=== PATIENT | male | born 1980 | race Caucasian/White ===

== ENCOUNTER 2016-12-26 08:55 | Day surgery (SDC) | payer BC, OTHER ==
[~2016-12-26 08:55] MED LIST: Lactated Ringers 1,000 ML IV SCH
--- NOTE | 2016-12-26 09:19 | PCM.PREANE ---
Preanesthetic Assessment - Anesthesia/Transfusion/Family Hx Anesthesia History: Prior Anesthesia Without Reaction Other Type of Anesthesia Reaction Comment: Denies any known problem in past, no known family hx: problems Family History of Anesthesia Reaction: No Transfusion History: No Prior Transfusion(s) Intubation History: Unknown - Review of Systems General: No Symptoms Pulmonary: No Symptoms Cardiovascular: No Symptoms Gastrointestinal: No symptoms Neurological: No Symptoms Other: Reports: None - Physical Assessment O2 Sat by Pulse Oximetry: 97 Respiratory Rate: 16 Vital Signs: Last Vital Signs Temp 36.4 C 12/26/16 09:02 Pulse 68 12/26/16 09:02 Resp 16 12/26/16 09:02 BP 134/66 12/26/16 09:02 Pulse Ox 97 12/26/16 09:02 Height: 1.75 m Weight: 102.512 kg ASA Class: 2 Mental Status: Alert & Oriented x3 Airway Class: Mallampati = 2 Dentition: Reports: Normal Dentition Thyro-Mental Finger Breadths: 3 Mouth Opening Finger Breadths: 2 ROM/Head Extension: Full Lungs: Clear to auscultation, Normal respiratory effort Cardiovascular: Regular Rate, Regular Rhythm - Allergies Allergies/Adverse Reactions: Allergies Allergy/AdvReac Type Severity Reaction Status Date / Time No Known Allergies Allergy Verified 11/14/14 10:22 - Blood Blood Available: No - Anesthesia Plan Pre-Op Medication Ordered: None - Acknowledgements Anesthesia Type Planned: MAC Pt an Appropriate Candidate for the Planned Anesthesia: Yes Alternatives and Risks of Anesthesia Discussed w Pt/Guardian: Yes Pt/Guardian Understands and Agrees with Anesthesia Plan: Yes PreAnesthesia Questionnaire Musculoskeletal History: Reports: Fracture Other Musculoskeletal History: hx fx clavicle, left leg and hand Endocrine/Metabolic History: Reports: Obesity/BMI 30+ Oncologic (Cancer) History: Reports: Colon (h/o sigmoid colon cancer with resection and end-to-end anastomosis ) - Past Surgical History Head Surgeries/Procedures: Reports: None GI Surgical History: Reports: Colonoscopy (multiple, last one in ) Other GI Surgeries/Procedures: hemicolectomy for colon cancer - SUBSTANCE USE Smoking Status *Q: Former Smoker (quit 8 years ago) Days Per Week of Alcohol Use: 1 Number of Drinks Per Day: 1 Total Drinks Per Week: 1 Recreational Drug Use History: No - HOME MEDS Home Medications: Home Meds . [No Known Home Meds] 11/14/14 [History] - CURRENT (IN HOUSE) MEDS Current Meds: Current Medications Lactated Ringer's (Ringers, Lactated) 1,000 mls @ 125 mls/hr IV ASDIRECTED [facility] Last Admin: 12/26/16 09:06 Dose: 125 mls/hr
[2016-12-26] MEDS ORDERED: fentaNYL 100 MCG/2 ML SDV ONE (09:52)
[2016-12-26] MEDS ORDERED: Lidocaine 2% 5 ML SDV ONE (09:52)
[2016-12-26] MEDS ORDERED: Midazolam 1 MG/ML 2 ML SDV ONE (09:52)
[2016-12-26] MEDS ORDERED: Propofol 200 MG/20 ML SDV ONE (09:52)
--- NOTE | 2016-12-26 10:22 | PCM.OPNOTE ---
- General Post-Op/Procedure Note Date of Surgery/Procedure: 12/26/16 Operative Procedure(s): Colonoscopy Pre Op Diagnosis: Personal history of colon cancer. Family history of colon cancer. Post-Op Diagnosis: No evidence of neoplasia. Anesthesia Technique: MAC (ASA II) Primary Surgeon: Den Farris Condition: Good Free Text/Narrative:: Dictation [id number] CPT CODE [id number]
[2016-12-26] MEDS ORDERED: Lactated Ringers 1,000 ML IV SCH (10:30)
[2016-12-26 11:05] VITALS: BP 124/76
--- NOTE | 2016-12-26 14:36 | OR ---
SURGEON: Den Farris M.D. DATE OF PROCEDURE: 12/26/2016 OPERATION PERFORMED: Colonoscopy. ANESTHESIA: MAC. ASA CLASSIFICATION: II. PREOPERATIVE DIAGNOSES: 1. Personal history of colon cancer. 2. Family history of colon cancer. POSTOPERATIVE DIAGNOSIS: No evidence of neoplasia. DESCRIPTION OF PROCEDURE: The patient was taken to the endoscopy room and positioned on the endoscopy table in the left lateral decubitus position. Time-out was called for appropriate identification of the patient and procedure. Monitored anesthesia care was provided. The colonoscope was inserted into the rectum and advanced with minimal difficulty to the cecum. The cecum was identified by internal landmarks and external pressure. The colonoscope was retroflexed in the cecum to visualize the ascending colon from below. The colonoscope was then straightened and slowly withdrawn. The cecum, ascending colon, hepatic flexure, transverse colon, splenic flexure, and descending colon showed no tumors, polyps, diverticula, or angiodysplastic changes. The anastomosis was widely patent at approximately 19 cm from the anus. There was no evidence of recurrence. Once the colonoscope was withdrawn to the distal rectum, it was retroflexed to visualize the anal orifice from above. No tumors, polyps, or acute hemorrhoidal changes were noted. The colonoscope was then straightened, the rectum aspirated, and the colonoscope removed. The patient tolerated the procedure well and was taken to recovery room in stable condition. CECY RAY /[id number]
== END 2016-12-26 11:03 | disposition home or self-care (01) ==
LOC: MW.SDS 08:55
PROVIDERS: ATTEND Surgery
PROC: 0DJD8ZZ Inspection of Lower Intestinal Tract, Via Natural or Artificial Opening Endoscopic (ICD-10-PCS; principal; 2016-12-26)
DX: Z12.11 Encounter for screening for malignant neoplasm of colon (principal); E66.9 Obesity, unspecified; Z85.038 Personal history of other malignant neoplasm of large intestine; Z80.0 Family history of malignant neoplasm of digestive organs; Z98.0 Intestinal bypass and anastomosis status; Z90.49 Acquired absence of other specified parts of digestive tract; Z98.890 Other specified postprocedural states; Z87.891 Personal history of nicotine dependence; Z68.33 Body mass index [BMI] 33.0-33.9, adult
CPT/HCPCS: 45378; J2250; J3010; J7120; J2704

== ENCOUNTER 2019-07-16 02:20 | Emergency (ER) | payer OTHER ==
[2019-07-16 02:40] VITALS: BP 153/89; PULSE 96
--- NOTE | 2019-07-16 02:49 | EDM.PDOC ---
ED HPI GENERAL MEDICAL PROBLEM - General Chief Complaint: ENT Problem Stated Complaint: THROAT AND SINUS PAIN Time Seen by Provider: 07/16/19 02:31 - History of Present Illness INITIAL COMMENTS - FREE TEXT/NARRATIVE: HISTORY AND PHYSICAL: History of present illness: The patient is a 38-year-old male who presents with approximately a little less none 24 hours of symptoms of runny nose sinus congestion and drainage sore throat and an occasional dry cough. He has not had a fever nausea vomiting or diarrhea. He did not get his flu shot this year. He is able to eat and drink despite the sore throat. He is not having headache or facial pain or sinus pain. The patient flew in from [facility] through [place] here to [place] on Monday and said that he had a normal day Monday and Monday. Monday, about 11 AM, yesterday, he started feeling the symptoms and took 1 dose of an [id number] medication he thinks is Sudafed. He says that this morning he came in because as he was sleeping he felt like there was fluid in the back of his throat and it would trigger a cough and he could not get any rest. He did not take any further idvf-wag-xyibgod meds. Review of systems: As per history of present illness and below otherwise all systems reviewed and negative. Past medical history: As per history of present illness and as reviewed below otherwise noncontributory. Surgical history: As per history of present illness and as reviewed below otherwise noncontributory. Social history: No reported history of drug or alcohol abuse. Family history: As per history of present illness and as reviewed below otherwise noncontributory. Physical exam: General: Well-developed well-nourished man who is nontoxic and vital signs are noted by me. He speaking clearly without breathlessness hoarse or muffled voice HEENT: Atraumatic, normocephalic, pupils reactive, negative for conjunctival pallor or scleral icterus, mucous membranes moist, throat clear of exudates but there is posterior oropharyngeal erythema without uvular deviation or swelling, there is no cervical adenopathy or nuchal rigidity, there is no sinus tenderness on palpation but the turbinates are boggy bilaterally with clear nasal drainage seen,, neck supple, nontender, trachea midline. Lungs: Clear to auscultation, breath sounds equal bilaterally, chest nontender. No wheezing stridor or work of breathing Heart: S1S2, regular, and rhythm no overt murmurs Abdomen: Soft, nondistended, nontender. Normal active bowel sounds Pelvis: Deferred Genitourinary: Deferred. Rectal: Deferred. Extremities: Atraumatic, negative for cords or calf pain. Neurovascular unremarkable. Neuro: Awake, alert, oriented. Cranial nerves II through XII unremarkable. Cerebellum unremarkable. Motor and sensory unremarkable throughout. Exam nonfocal. Diagnostics: Influenza rapid strep Therapeutics: [] I discussed with the patient that he could try iepr-fxu-tupykbg Flonase as well as Zyrtec Claritin or Muriel to help with his sinus fluid and drainage. We also talked about other symptomatic care and need for follow-up and he states that he does have a local provider. Impression: nasal/sinus congestion and pharyngitis Definitive disposition and diagnosis as appropriate pending reevaluation and review of above. - Related Data Allergies Allergy/AdvReac Type Severity Reaction Status Date / Time No Known Allergies Allergy Verified 07/16/19 02:39 Home Meds: Home Meds . [No Known Home Meds] 11/14/14 [History] Past Medical History Gastrointestinal History: Reports: None Musculoskeletal History: Reports: Fracture Other Musculoskeletal History: hx fx clavicle, left leg and hand Endocrine/Metabolic History: Reports: Obesity/BMI 30+ Oncologic (Cancer) History: Reports: Colon - Past Surgical History Head Surgeries/Procedures: Reports: None GI Surgical History: Reports: Colonoscopy Other GI Surgeries/Procedures: hemicolectomy for colon cancer Oncologic Surgical History: Reports: Other (See Below) Other Oncologic Surgeries/Procedures: hemicolectomy Social & Family History - Family History Family Medical History: Noncontributory - Tobacco Use Smoking Status *Q: Never Smoker Second Hand Smoke Exposure: No - Caffeine Use Caffeine Use: Reports: Energy Drinks - Recreational Drug Use Recreational Drug Use: No ED ROS GENERAL - Review of Systems Review Of Systems: Comprehensive ROS is negative, except as noted in HPI. ED EXAM, GENERAL - Physical Exam Exam: See Below (See dictation) Course - Vital Signs Last Recorded V/S: Last Vital Signs Temp 36.4 C 07/16/19 02:27 Pulse 96 07/16/19 02:27 Resp 18 07/16/19 02:27 BP 153/89 H 07/16/19 02:27 Pulse Ox 99 07/16/19 02:27 - Orders/Labs/Meds Orders: Active Orders 24 hr Category Date Time Status CULTURE STREP A CONFIRMATION [] Stat Lab 07/16/19 02:33 Results STREP SCRN A RAPID W CULT CONF [] Stat Lab 07/16/19 02:33 Results Departure - Departure Time of Disposition: 03:02 Disposition: Home, Self-Care 01 Condition: Good Clinical Impression: Nasal congestion Pharyngitis Qualifiers: Pharyngitis/tonsillitis etiology: unspecified etiology Qualified Code(s): J02.9 - Acute pharyngitis, unspecified - Discharge Information Referrals: Emma Parrish NP [Primary Care Provider] - Forms: ED Department Discharge Additional Instructions: The following information is given to patients seen in the emergency department who are being discharged to home. This information is to outline your options for follow-up care. We provide all patients seen in our emergency department with a follow-up referral. The need for follow-up, as well as the timing and circumstances, are variable depending upon the specifics of your emergency department visit. If you don't have a primary care physician on staff, we will provide you with a referral. We always advise you to contact your personal physician following an emergency department visit to inform them of the circumstance of the visit and for follow-up with them and/or the need for any referrals to a consulting specialist. The emergency department will also refer you to a specialist when appropriate. This referral assures that you have the opportunity for followup care with a specialist. All of these measure are taken in an effort to provide you with optimal care, which includes your followup. Under all circumstances we always encourage you to contact your private physician who remains a resource for coordinating your care. When calling for followup care, please make the office aware that this follow-up is from your recent emergency room visit. If for any reason you are refused follow-up, please contact the [facility] emergency department at and ask to speak to the emergency department charge nurse. [facility] Primary care- Internal Medicine and Family [address] [address] Push hydration and rest when you can. Use oivp-ouw-gvhcbwm medication such as Claritin Muriel or Zyrtec to help with sinus fluid and congestion and use over- the-counter Tylenol or ibuprofen for pain and fevers. Call and connect with your provider or 1 of ours for follow-up and reevaluation and return to ER as needed and as discussed. You may also use hanz-rcj-pgkdodh Flonase that may help with any nasal congestion. Sepsis Event Note - Evaluation Sepsis Screening Result: No Definite Risk - Focused Exam Vital Signs: Vital Signs Temp Pulse Resp BP Pulse Ox 07/16/19 02:27 36.4 C 96 18 153/89 H 99 Date Exam was Performed: 07/16/19 Time Exam was Performed: 03:02 - My Orders Last 24 Hours: My Active Orders 07/16/19 02:33 CULTURE STREP A CONFIRMATION [RM] Stat STREP SCRN A RAPID W CULT CONF [RM] Stat - Assessment/Plan Last 24 Hours: My Active Orders 07/16/19 02:33 CULTURE STREP A CONFIRMATION [RM] Stat STREP SCRN A RAPID W CULT CONF [RM] Stat
== END 2019-07-16 03:12 | disposition home or self-care (01) ==
LOC: MW.ED 02:20
DX: J02.9 Acute pharyngitis, unspecified (principal); E66.9 Obesity, unspecified
CPT/HCPCS: 87081; 87804; 87880-QW; 99282; 99283

== ENCOUNTER 2020-03-09 09:32 | Day surgery (SDC) | payer OTHER ==
[~2020-03-09 09:32] MED LIST changes: +Lidocaine 2% 5 ML SDV ONE; +Midazolam 1 MG/ML 2 ML SDV ONE; +Propofol 200 MG/20 ML SDV ONE; +fentaNYL 100 MCG/2 ML SDV ONE
--- NOTE | 2020-03-09 10:10 | PCM.PREANE ---
Preanesthetic Assessment - Anesthesia/Transfusion/Family Hx Anesthesia History: Prior Anesthesia Without Reaction Other Type of Anesthesia Reaction Comment: Denies any known problem in past, no known family hx: problems Family History of Anesthesia Reaction: No Transfusion History: No Prior Transfusion(s) Intubation History: Unknown - Review of Systems General: No Symptoms Pulmonary: No Symptoms Cardiovascular: No Symptoms Gastrointestinal: No Symptoms Neurological: No Symptoms Other: Reports: None - Physical Assessment NPO Status Date: 03/08/20 Vital Signs: Last Vital Signs Temp 97.7 F 03/09/20 09:50 Pulse 62 03/09/20 09:50 Resp 16 03/09/20 09:50 BP 148/87 H 03/09/20 09:50 Pulse Ox 97 03/09/20 09:50 Height: 5 ft 9 in Weight: 112.945 kg ASA Class: 2 Mental Status: Alert & Oriented x3 Airway Class: Mallampati = 2 Dentition: Reports: Normal Dentition ROM/Head Extension: Full Lungs: Clear to Auscultation, Normal Respiratory Effort Cardiovascular: Regular Rate, Regular Rhythm - Allergies Allergies/Adverse Reactions: Allergies Allergy/AdvReac Type Severity Reaction Status Date / Time No Known Allergies Allergy Verified 03/03/20 11:29 - Blood Blood Available: No - Anesthesia Plan Pre-Op Medication Ordered: None - Acknowledgements Anesthesia Type Planned: General Anesthesia Pt an Appropriate Candidate for the Planned Anesthesia: Yes Alternatives and Risks of Anesthesia Discussed w Pt/Guardian: Yes Pt/Guardian Understands and Agrees with Anesthesia Plan: Yes PreAnesthesia Questionnaire Gastrointestinal History: Reports: Colon Polyp, GERD, Hemorrhoids Musculoskeletal History: Reports: Fracture Other Musculoskeletal History: hx of fx ankle, leg, clavicle, toe- no hardware Neurological History: Reports: Concussion Endocrine/Metabolic History: Reports: Obesity/BMI 30+ Oncologic (Cancer) History: Reports: Colon - Past Surgical History Head Surgeries/Procedures: Reports: None GI Surgical History: Reports: Colon, Colonoscopy Other GI Surgeries/Procedures: hx of Hemicolectomy Oncologic Surgical History: Reports: Other (See Below) Other Oncologic Surgeries/Procedures: Hemicolectomy - SUBSTANCE USE Smoking Status *Q: Former Smoker Tobacco Use Within Last Twelve Months: No Recreational Drug Use History: Yes Recreational Drug Type: Reports: Marijuana/Hashish - HOME MEDS Home Medications: Home Meds . [No Known Home Meds] 11/14/14 [History] - CURRENT (IN HOUSE) MEDS Current Meds: Current Medications Lactated Ringer's (Ringers, Lactated) 1,000 mls @ 125 mls/hr IV ASDIRECTED EVA Discontinued Medications Fentanyl (Sublimaze) Confirm Administered Dose 100 mcg .ROUTE .STK-MED ONE Stop: 03/09/20 08:42 Lidocaine (Xylocaine-Mpf 2%) Confirm Administered Dose 5 ml .ROUTE .STK-MED ONE Stop: 03/09/20 08:41 Midazolam HCl (Versed 1 Mg/Ml) Confirm Administered Dose 2 mg .ROUTE .STK-MED ONE Stop: 03/09/20 08:41 Propofol (Diprivan 20 Ml) Confirm Administered Dose 400 mg .ROUTE .STK-MED ONE Stop: 03/09/20 08:41
--- NOTE | 2020-03-09 11:27 | PCM.OPNOTE ---
- General Post-Op/Procedure Note Date of Surgery/Procedure: 03/09/20 Operative Procedure(s): Esophagogastroduodenoscopy with stomach and esophageal biopsies. Colonoscopy with cold sigmoid colon polypectomy Pre Op Diagnosis: Progressive heartburn. Personal history of colon cancer and villous adenoma of the colon. Strong family history of colon cancer. Post-Op Diagnosis: #1 mild to moderate chronic gastritis. #2. Esophagitis. #3. Sigmoid colon polyp. Anesthesia Technique: MAC (ASA II) Primary Surgeon: Den Farris Condition: Good Free Text/Narrative:: DICTATION [id number] CPT CODE [id number]
[2020-03-09] MEDS ORDERED: Lactated Ringers 1,000 ML IV SCH (11:30)
--- NOTE | 2020-03-09 11:39 | PCM.POSTAN ---
POST ANESTHESIA ASSESSMENT - MENTAL STATUS Mental Status: Alert, Oriented - VITAL SIGNS Vital Signs: Last Vital Signs Temp 97.7 F 03/09/20 09:50 Pulse 55 L 03/09/20 11:32 Resp 16 03/09/20 11:32 BP 125/72 03/09/20 11:32 Pulse Ox 96 03/09/20 11:32 - RESPIRATORY Respiratory Status: Respiratory Rate WNL, Airway Patent, O2 Saturation Stable - CARDIOVASCULAR CV Status: Pulse Rate WNL, Blood Pressure Stable - GASTROINTESTINAL GI Status: No Symptoms - POST OP HYDRATION Hydration Status: Adequate & Stable
[2020-03-09 12:00] VITALS: BP 117/59; PULSE 58
--- NOTE | 2020-03-09 13:17 | OR ---
SURGEON: Den Farris M.D. DATE OF PROCEDURE: 03/09/2020 OPERATION PERFORMED: Esophagogastroduodenoscopy with biopsy. PRIMARY SURGEON: Den Farris MD ANESTHESIA: MAC. ASA CLASSIFICATION: II. PREOPERATIVE DIAGNOSIS: Progressive heartburn. POSTOPERATIVE DIAGNOSES: 1. Mild to moderate chronic gastritis. 2. Esophagitis. DESCRIPTION OF PROCEDURE: The patient was taken to the endoscopy room and positioned on the endoscopy table in the left lateral decubitus position. Time-out was called for appropriate identification of the patient and procedure. Monitored anesthesia care was provided. Bite block was placed between the patient's teeth. The gastroscope was then inserted through the bite block into the oropharynx and advanced without difficulty through the esophagus and stomach into the duodenum where examination was carried out in a retrograde fashion. The duodenum showed no acute inflammatory changes or ulcerations. No blood was noted in the duodenum. The scope was withdrawn to the stomach, which did show mild to moderate gastritis. No ulcerations were noted. Antral biopsies were obtained to look for the presence of Helicobacter pylori. The gastroscope was retroflexed to visualize the proximal stomach. Cardia was well visualized. No hiatal hernia was noted and there were no ulcers or tumors noted in the proximal stomach. As the scope was withdrawn, the greater and lesser curvatures were carefully visualized. No polyps were seen and again no ulcerations were noted. Stomach was aspirated, the scope was withdrawn. The patient did appear to have a superficial esophageal erosion just above the GE junction. Biopsies of this area were obtained. I did not see any deep ulcerations and no obvious tumor or masses were noted. I did not see any significant reflux during the procedure. The esophagus demonstrated good contractility. No mid or proximal lesions were identified. The vocal cords were visualized as the scope was withdrawn and noted to move symmetrically. The gastroscope was then removed with the patient having tolerated the procedure well. Following colonoscopy, he was taken to recovery room in satisfactory condition. CECY / FLOR /[id number]
--- NOTE | 2020-03-09 13:47 | OR ---
SURGEON: Den Farris M.D. DATE OF PROCEDURE: 03/09/2020 OPERATION PERFORMED: Colonoscopy with cold sigmoid colon polypectomy. PRIMARY SURGEON: Den Farris MD ANESTHESIA: MAC. ASA CLASSIFICATION: II. PREOPERATIVE DIAGNOSES: 1. Personal history of colon cancer. 2. History of villous adenoma. 3. Family history of colon cancer in Father, Mother, paternal grandmother, and paternal grandfather. POSTOPERATIVE DIAGNOSIS: Sigmoid polyp. DESCRIPTION OF PROCEDURE: With the patient having completed upper GI endoscopy, he was maintained in the left lateral decubitus position. The colonoscope was inserted into the rectum and advanced with minimal difficulty to the cecum. The cecum was identified by internal landmarks and external pressure. The colonoscope was retroflexed to visualize the ascending colon from below, then straightened and slowly withdrawn. Cecum, ascending colon, hepatic flexure, transverse colon, splenic flexure, and descending colon showed no tumors, polyps, diverticula, or angiodysplastic changes. One polyp was encountered in the sigmoid colon, and this had been removed at the beginning of the procedure. The anastomosis was easily visualized and was widely patent. I did not see any evidence of anastomotic recurrence. The colonoscope was then withdrawn to the rectum and retroflexed to visualize the anal orifice from above. Again, no tumors or polyps were seen and there were no acute hemorrhoidal changes. The colonoscope was then straightened, the rectum aspirated, and the colonoscope removed. The patient tolerated the procedure well and was taken to recovery room in stable condition. CECY / FLOR /[id number]
== END 2020-03-09 12:00 | disposition home or self-care (01) ==
LOC: MW.SDS 09:32
PROVIDERS: ATTEND Surgery
DX: Z12.11 Encounter for screening for malignant neoplasm of colon (principal); D12.5 Benign neoplasm of sigmoid colon; K29.50 Unspecified chronic gastritis without bleeding; K21.0 Gastro-esophageal reflux disease with esophagitis; E66.9 Obesity, unspecified; K22.10 Ulcer of esophagus without bleeding; Z80.0 Family history of malignant neoplasm of digestive organs; Z98.890 Other specified postprocedural states; Z85.038 Personal history of other malignant neoplasm of large intestine; Z87.891 Personal history of nicotine dependence; Z72.89 Other problems related to lifestyle; Z90.49 Acquired absence of other specified parts of digestive tract; Z68.36 Body mass index [BMI] 36.0-36.9, adult; Z98.0 Intestinal bypass and anastomosis status
CPT/HCPCS: 43239; 45380; J2001; J2250; J2704; J3010; J7120; 00813; 88305; 88312

== ENCOUNTER 2022-12-12 11:00 | Day surgery (SDC) | payer OTHER ==
[~2022-12-12 11:00] MED LIST changes: -Lidocaine 2% 5 ML SDV ONE; -Midazolam 1 MG/ML 2 ML SDV ONE; -fentaNYL 100 MCG/2 ML SDV ONE
[2022-12-12] MEDS ORDERED: Lactated Ringers 1,000 ML IV SCH (12:15)
[2022-12-12 12:38] VITALS: BP 139/78; PULSE 67
== END 2022-12-12 12:50 | disposition home or self-care (01) ==
LOC: MW.SDS 11:00
PROVIDERS: ATTEND Surgery
DX: Z12.11 Encounter for screening for malignant neoplasm of colon (principal); K21.00 Gastro-esophageal reflux disease with esophagitis, without bleeding; I10 Essential (primary) hypertension; E66.9 Obesity, unspecified; Z78.9 Other specified health status; Z86.010 Personal history of colon polyps; Z85.038 Personal history of other malignant neoplasm of large intestine; Z98.0 Intestinal bypass and anastomosis status; Z79.899 Other long term (current) drug therapy; Z90.49 Acquired absence of other specified parts of digestive tract; Z80.0 Family history of malignant neoplasm of digestive organs; Z87.891 Personal history of nicotine dependence; Z68.37 Body mass index [BMI] 37.0-37.9, adult
CPT/HCPCS: 45378; J2704; J7120; 00812

== ENCOUNTER 2024-06-12 14:29 | Emergency (ER) | payer SELFPAY ==
[2024-06-12] MEDS ORDERED: Sodium Chloride 0.9% 10 ML Syringe FLUSH PRN (14:36)
[2024-06-12] MEDS ORDERED: Sodium Chloride 0.9% 2.5 ML Syringe FLUSH PRN (14:36)
[2024-06-12 14:41] LABS: BASOPHILS ABSOLUTE AUTO 0.04 K/uL (0.00-0.20); BASOPHILS PERCENT AUTO 0.5 % (0.0-1.0); HEMATOCRIT 40.1 % (42.0-52.0); IMMATURE GRAN ABSOLUTE AUTO 0.08 K/uL (0.00-0.05); IMMATURE GRAN PERCENT AUTO 0.9 % (0.0-0.4); LYMPHOCYTES ABSOLUTE AUTO 1.29 K/uL (1.00-4.80); LYMPHOCYTES PERCENT AUTO 14.9 % (24.0-44.0); MEAN CORPUSCULAR HEMOGLOBIN 27.7 pg (28.0-32.0); MEAN CORPUSCULAR HGB CONC 34.9 g/dL (32.0-36.0); MEAN CORPUSCULAR VOLUME 79.4 fL (83.0-99.0); MEAN PLATELET VOLUME 9.7 fL (9.4-12.4); MONOCYTES ABSOLUTE AUTO 0.74 K/uL (0.00-0.80); MONOCYTES PERCENT AUTO 8.5 % (0.0-8.0); NEUTROPHILS ABSOLUTE AUTO 6.52 K/uL (1.80-7.70); NEUTROPHILS PERCENT AUTO 75.2 % (41.0-71.0); PLATELET COUNT,PLT 289 K/uL (150-400); RED BLOOD CELL COUNT 5.05 M/uL (4.52-5.90); WHITE BLOOD CELL COUNT,WBC 8.67 K/uL (3.9-11.3)
[2024-06-12] MEDS: Sodium Chloride 0.9% 1,000 ML IV STA (14:41)
[2024-06-12] MEDS: Adenosine 6 MG/2 ML SDV IVPUSH ONE (14:45)
[2024-06-12] MEDS: Adenosine 6 MG/2 ML SDV ONE (14:49)
[2024-06-12] MEDS: Azithromycin 500 MG in Sodium Chloride 0.9% 250 ML IV ONE (14:58)
[2024-06-12] MEDS: cefTRIAXone 2 GM in Sodium Chloride 0.9% 50 ML IV ONE (14:59)
[2024-06-12 15:10] LABS: A/G RATIO 0.6 (0.9-1.6); ALBUMIN 2.8 g/dL (3.4-5.0); BILIRUBIN TOTAL 0.7 mg/dL (0.2-1.0); CALCIUM 8.2 mg/dL (8.5-10.1); CARBON DIOXIDE,CO2 30.3 mmol/L (21.0-32.0); CREATININE 1.1 mg/dL (0.8-1.3); EST CRCL DRUG DOSING (CG) 87.48 mL/min; PROTEIN TOTAL,TP 7.5 g/dL (6.4-8.2)
[2024-06-12] MEDS: Diltiazem 25 MG/5 ML SDV IVPUSH ONE ×2 (15:15→15:41)
[2024-06-12 15:38] LABS: LACTIC ACID 1.6 mmol/L (0.4-2.0)
[2024-06-12] MEDS: Diltiazem 100 MG in Sodium Chloride 0.9% 100 ML IV SCH (15:41)
[2024-06-12 16:09] LABS: APPEARANCE,URINE CLEAR; BILIRUBIN,URINE NEGATIVE (NEGATIVE); COLOR,URINE YELLOW; GLUCOSE,URINE NEGATIVE (NEGATIVE); KETONES,URINE 15 mg/dL (NEGATIVE); LEUKOCYTE ESTERASE,URINE NEGATIVE (NEGATIVE); NITRITE,URINE NEGATIVE (NEGATIVE); OCCULT BLOOD,URINE SMALL (NEGATIVE); PH,URINE 6.5 (5.0-8.0); PROTEIN,URINE 100 mg/dL (NEGATIVE)
[2024-06-12 16:19] LABS: AMPHETAMINES SCREEN, URINE NEGATIVE (CUTOFF=500); BARBITURATE SCREEN,URINE NEGATIVE (CUTOFF=200); BENZODIAZEPINES SCREEN,URINE NEGATIVE (CUTOFF=150); BUPRENORPHINE SCREEN,URINE NEGATIVE (CUTOFF=10); METHADONE SCREEN, URINE NEGATIVE (CUTOFF=200); METHAMPHETAMINES SCREEN, URINE NEGATIVE (CUTOFF=500); OXYCODONE SCREEN,URINE NEGATIVE (CUT0FF=100); PCP SCREEN,URINE NEGATIVE (CUTOFF=25); THC SCREEN,URINE 20 NG/ML NEGATIVE (CUTOFF=50)
[2024-06-12 16:21] LABS: BACTERIA,URINE FEW (NEGATIVE); EPITHELIAL CELLS,URINE RARE (NONE-FEW); RBC,URINE 0-2 (0-2/HPF); WBC,URINE 0-1 (0-5/HPF)
[2024-06-12] MEDS: Iopamidol 755 Mg/ML 100 ML Bottle IVPUSH ONE (16:40)
[2024-06-12] MEDS ORDERED: Sodium Chloride 0.9% 100 ML ONE (18:18)
[2024-06-12 18:40] VITALS: BP 128/84; PULSE 128
== END 2024-06-12 18:52 ==
LOC: MW.ED 14:29
DX: I48.92 Unspecified atrial flutter (principal); J18.9 Pneumonia, unspecified organism; R09.02 Hypoxemia; E66.9 Obesity, unspecified; Z79.899 Other long term (current) drug therapy; Z68.39 Body mass index [BMI] 39.0-39.9, adult; Z75.8 Other problems related to medical facilities and other health care
CPT/HCPCS: 36415; 71045; 71275; 80053; 80305; 80307; 81001; 83605; 83735; 83880; 84484; 85025; 85379; 87040; 87428; 93005; 96365; 96366; 96367; 96368; 96375; 96376; 99285; J0153; J0456; J0696; J3490; J7030; J7050; Q9967

== ENCOUNTER 2025-04-14 08:09 | Day surgery (SDC) | payer OTHER ==
[2025-04-14] MEDS: Lactated Ringers 1,000 ML IV SCH (08:35)
[2025-04-14] MEDS ORDERED: Propofol 200 MG/20 ML SDV ONE ×2 (09:15→09:55)
[2025-04-14] MEDS ORDERED: Lactated Ringers 1,000 ML IV SCH (10:15)
[2025-04-14 10:55] VITALS: BP 103/63; PULSE 56
== END 2025-04-14 10:50 | disposition home or self-care (01) ==
LOC: MW.SDS 08:09
PROVIDERS: ATTEND Surgery
DX: D12.4 Benign neoplasm of descending colon (principal); D12.5 Benign neoplasm of sigmoid colon; D12.8 Benign neoplasm of rectum; K62.5 Hemorrhage of anus and rectum; I10 Essential (primary) hypertension; I48.91 Unspecified atrial fibrillation; E66.9 Obesity, unspecified; Z98.0 Intestinal bypass and anastomosis status; Z90.49 Acquired absence of other specified parts of digestive tract; Z79.01 Long term (current) use of anticoagulants; Z85.038 Personal history of other malignant neoplasm of large intestine; Z79.899 Other long term (current) drug therapy; Z86.0101 Personal history of adenomatous and serrated colon polyps; Z87.891 Personal history of nicotine dependence; Z68.41 Body mass index [BMI] 40.0-44.9, adult
CPT/HCPCS: 45380; 45385; J2704; J7120; 00811